=== PATIENT | male | born 1970 | race African-American/Black ===

== ENCOUNTER → 2017-10-16 18:20 | Emergency (ER) | payer SELFPAY ==
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
[2017-10-16 22:00] VITALS: BP 138/89
--- NOTE | 2017-10-17 07:44 | RAD ---
INDICATION: Facial trauma. COMPARISON: Comparison is made with a prior study from November 21, 2008. TECHNIQUE: Contiguous axial sections of the axial images of the facial bones were obtained and reconstructed in the coronal and sagittal planes. FINDINGS: Soft tissue swelling is noted anterior to the mandible. There are several small calcific densities which project within the soft tissues in that region which are unchanged from the prior study.. The vleasquez of the orbits and maxillary sinuses appear intact. The zygomatic arches appear intact. There is no evidence for a fracture of the mandible. The nasal bones appear intact. There is mild to moderate deviation of the nasal septum toward the left side. The pterygoid plates appear intact. There is a 0.8 cm nodule in the superior anterior portion of the right maxillary sinus most consistent with a mucous retention cyst or polyp. The paranasal sinuses otherwise appear clear. IMPRESSION: NO EVIDENCE OF FRACTURE.
== END | disposition home or self-care (01) ==
LOC: ED 18:20
DX: S01.511A Laceration without foreign body of lip, initial encounter (principal); R68.84 Jaw pain; V11.4XXA Pedal cycle driver injured in collision with other pedal cycle in traffic accident, initial encounter; Y93.55 Activity, bike riding; Y92.9 Unspecified place or not applicable
CPT/HCPCS: 12011; 70486; 99281

== ENCOUNTER 2017-10-23 11:29 | Emergency (ER) | payer SELFPAY | END 2017-10-23 12:30 | disposition left against medical advice (07) | LOC: UCEAST 11:29 | DX: T14.8XXD Other injury of unspecified body region, subsequent encounter (principal); Z53.21 Procedure and treatment not carried out due to patient leaving prior to being seen by health care provider ==

== ENCOUNTER 2017-10-23 12:00 | Emergency (ER) | payer SELFPAY ==
[2017-10-23 12:59] VITALS: BP 168/116
--- NOTE | 2017-10-23 13:50 | ED ---
Laceration/Wound HPI - HPI Summary HPI Summary: Patient is a 47-year-old male who presents emergency department for suture removal. Patient was seen in the emergency department 7 days ago after he sustained a laceration just below his bottom lip. Patient states wound has been healing well without redness, swelling or drainage. Symptoms are mild in severity. Patient offers no complaints. - History of Current Complaint Stated Complaint: NEEDS SUTURES REMOVED Time Seen by Provider: 10/23/17 12:23 Hx Obtained From: Patient Pain Intensity: 0 Pain Scale Used: 0-10 Numeric - Allergy/Home Medications Allergies/Adverse Reactions: Allergies Allergy/AdvReac Type Severity Reaction Status Date / Time amoxicillin Allergy Hives Verified 10/16/17 18:31 ciprofloxacin [From Cipro] Allergy Rash Verified 10/16/17 18:31 PMH/Surg Hx/FS Hx/Imm Hx Previously Healthy: Yes Endocrine/Hematology History: Denies: Hx Diabetes, Hx Thyroid Disease Cardiovascular History: Denies: Hx Hypertension Respiratory History: Denies: Hx Asthma, Hx Chronic Obstructive Pulmonary Disease (COPD) GI History: Denies: Hx Ulcer Infectious Disease History: No Infectious Disease History: Denies: Hx Clostridium Difficile, Hx Hepatitis, Hx Human Immunodeficiency Virus (HIV), Hx of Known/Suspected MRSA, Hx Shingles, Hx Tuberculosis, Traveled Outside the [place] in Last 30 Days - Family History Known Family History: Positive: Hypertension - Social History Occupation: Employed Full-time Lives: With Family Alcohol Use: None Substance Use Type: Reports: None Smoking Status (MU): Never Smoked Tobacco Review of Systems Constitutional: Negative Positive: Other - Healing wound below lip All Other Systems Reviewed And Are Negative: Yes Physical Exam Triage Information Reviewed: Yes Vital Signs On Initial Exam: Initial Vitals Temp Pulse Resp BP Pulse Ox 97.7 F 69 14 116/97 100 10/23/17 12:16 10/23/17 12:16 10/23/17 12:16 10/23/17 12:16 10/23/17 12:16 Vital Signs Reviewed: Yes Appearance: Positive: Well-Appearing - Pt. sitting up in bed in NAD. Skin: Positive: Warm, Dry, Other - Healing wound noted just below lower lip. 3 sutures intact. No redness, swelling or drainage. Head/Face: Positive: Normal Head/Face Inspection Eyes: Positive: Normal Neck: Positive: Supple Neurological: Positive: Normal, CN Intact II-III Psychiatric: Positive: Affect/Mood Appropriate Procedures - Procedure Summary Procedure Summary: 3 Sutures were removed from lower facial wound. No signs of infection. Pt. tolerated well. Diagnostics - Vital Signs Vital Signs Temp Pulse Resp BP Pulse Ox 10/23/17 12:58 0 F 82 18 168/116 99 10/23/17 12:16 97.7 F 69 14 116/97 100 - Laboratory Lab Statement: Any lab studies that have been ordered have been reviewed, and results considered in the medical decision making process. Laceration Repair Course/Dx - Course Course Of Treatment: Pt. presenting for suture removal. No signs of an infection. Wound is well approximated. Sutures were removed without difficulty. Advised patient to continue wound care. He was given information for the physician referral line to establish a PCP. - Differential Dx Differental Diagnoses: Abscess, Cellulitis, Dehiscence, Laceration - Clinical Impression Provider Diagnoses: Encounter for removal of sutures Discharge - Sign-Out/Discharge Documenting (check all that apply): Patient Departure - Discharge Plan Condition: Good Disposition: HOME Patient Education Materials: Stitches Removal (ED) Referrals: [facility] [place] [facility]ICIAN REFERRAL [Outside] No Primary Care Phys,NOPCP [Primary Care Provider] - Additional Instructions: Call the [facility] [place] referral line to establish a PCP Keep wound clean and dry Return to ER for signs of infection- redness, swelling, drainage - Billing Disposition and Condition Condition: GOOD Disposition: Home
== END 2017-10-23 12:58 | disposition home or self-care (01) ==
LOC: ED 12:00
DX: S01.511D Laceration without foreign body of lip, subsequent encounter (principal); X58.XXXD Exposure to other specified factors, subsequent encounter; Z88.1 Allergy status to other antibiotic agents; Z88.0 Allergy status to penicillin